=== PATIENT | male | born 1945 | race Caucasian/White ===

== ENCOUNTER 2023-12-01 14:40 | Outpatient (CLI) | payer MEDICARE | END 2023-12-01 14:41 | disposition home or self-care (01) | LOC: CSHWCC 14:40 | PROVIDERS: ATTEND Preventive Medicine Undersea and Hyperbaric Medicine | DX: N30.41 Irradiation cystitis with hematuria (principal) | CPT/HCPCS: 82962; G0277; 36416 ==

== ENCOUNTER 2023-12-02 07:57 | Outpatient (CLI) | payer MEDICARE | END 2023-12-02 07:58 | disposition home or self-care (01) | LOC: CSHWCC 07:57 | PROVIDERS: ATTEND Preventive Medicine Undersea and Hyperbaric Medicine | DX: N30.41 Irradiation cystitis with hematuria (principal) | CPT/HCPCS: 82962; G0277; 36416 ==

== ENCOUNTER 2023-12-05 12:07 | Outpatient (CLI) | payer MEDICARE | END 2023-12-05 12:08 | disposition home or self-care (01) | LOC: CSHWCC 12:07 | PROVIDERS: ATTEND Preventive Medicine Undersea and Hyperbaric Medicine | DX: N30.41 Irradiation cystitis with hematuria (principal) | CPT/HCPCS: 82962; G0277; 36416 ==

== ENCOUNTER 2023-12-06 08:19 | Outpatient (CLI) | payer MEDICARE | END 2023-12-06 08:20 | disposition home or self-care (01) | LOC: CSHWCC 08:19 | PROVIDERS: ATTEND Preventive Medicine Undersea and Hyperbaric Medicine | DX: N30.41 Irradiation cystitis with hematuria (principal) | CPT/HCPCS: 82962; G0277; 36416 ==

== ENCOUNTER 2023-12-07 08:59 | Outpatient (CLI) | payer MEDICARE | END 2023-12-07 09:00 | disposition home or self-care (01) | LOC: CSHWCC 08:59 | PROVIDERS: ATTEND Nurse Practitioner Family | DX: N30.41 Irradiation cystitis with hematuria (principal) | CPT/HCPCS: 82962; G0277; 36416 ==

== ENCOUNTER 2023-12-08 08:26 | Outpatient (CLI) | payer MEDICARE | END 2023-12-08 08:27 | disposition home or self-care (01) | LOC: CSHWCC 08:26 | PROVIDERS: ATTEND Nurse Practitioner Family | DX: N30.41 Irradiation cystitis with hematuria (principal) | CPT/HCPCS: 82962; G0277; 36416 ==

== ENCOUNTER 2023-12-09 14:25 | Outpatient (CLI) | payer MEDICARE | END 2023-12-09 14:26 | disposition home or self-care (01) | LOC: CSHWCC 14:25 | PROVIDERS: ATTEND Nurse Practitioner Family | DX: N30.41 Irradiation cystitis with hematuria (principal) | CPT/HCPCS: 36416 ==

== ENCOUNTER 2023-12-12 10:09 | Outpatient (CLI) | payer MEDICARE | END 2023-12-12 10:10 | disposition home or self-care (01) | LOC: CSHWCC 10:09 | PROVIDERS: ATTEND Nurse Practitioner Family | DX: N30.41 Irradiation cystitis with hematuria (principal) | CPT/HCPCS: 36416; G0277 ==

== ENCOUNTER 2023-12-13 08:20 | Outpatient (CLI) | payer MEDICARE | END 2023-12-13 08:21 | disposition home or self-care (01) | LOC: CSHWCC 08:20 | PROVIDERS: ATTEND Nurse Practitioner Family | DX: N30.41 Irradiation cystitis with hematuria (principal) | CPT/HCPCS: 36416 ==

== ENCOUNTER 2023-12-14 08:10 | Outpatient (CLI) | payer MEDICARE | END 2023-12-14 08:11 | disposition home or self-care (01) | LOC: CSHWCC 08:10 | PROVIDERS: ATTEND Nurse Practitioner Family | DX: N30.41 Irradiation cystitis with hematuria (principal) | CPT/HCPCS: 36416; G0277 ==

== ENCOUNTER 2023-12-15 08:55 | Outpatient (CLI) | payer MEDICARE | END 2023-12-15 08:56 | disposition home or self-care (01) | LOC: CSHWCC 08:55 | PROVIDERS: ATTEND Nurse Practitioner Family | DX: N30.41 Irradiation cystitis with hematuria (principal) | CPT/HCPCS: 82962; G0277; 36416 ==

== ENCOUNTER 2023-12-16 08:24 | Outpatient (CLI) | payer MEDICARE | END 2023-12-16 08:25 | disposition home or self-care (01) | LOC: CSHWCC 08:24 | PROVIDERS: ATTEND Nurse Practitioner Family | DX: N30.41 Irradiation cystitis with hematuria (principal) | CPT/HCPCS: 82962; G0277; 36416 ==

== ENCOUNTER 2023-12-19 09:49 | Outpatient (CLI) | payer MEDICARE | END 2023-12-19 09:50 | disposition home or self-care (01) | LOC: CSHWCC 09:49 | PROVIDERS: ATTEND Nurse Practitioner Family | DX: N30.41 Irradiation cystitis with hematuria (principal) | CPT/HCPCS: 82962; G0277; 36416 ==

== ENCOUNTER 2023-12-20 08:43 | Outpatient (CLI) | payer MEDICARE | END 2023-12-20 08:44 | disposition home or self-care (01) | LOC: CSHWCC 08:43 | PROVIDERS: ATTEND Nurse Practitioner Family | DX: N30.41 Irradiation cystitis with hematuria (principal) | CPT/HCPCS: 36416; G0277 ==

== ENCOUNTER 2023-12-21 08:23 | Outpatient (CLI) | payer MEDICARE | END 2023-12-21 08:24 | disposition home or self-care (01) | LOC: CSHWCC 08:23 | PROVIDERS: ATTEND Nurse Practitioner Family | DX: N30.41 Irradiation cystitis with hematuria (principal) | CPT/HCPCS: 36416; G0277 ==

== ENCOUNTER 2023-12-22 08:55 | Outpatient (CLI) | payer MEDICARE | END 2023-12-22 08:56 | disposition home or self-care (01) | LOC: CSHWCC 08:55 | PROVIDERS: ATTEND Preventive Medicine Undersea and Hyperbaric Medicine | DX: N30.41 Irradiation cystitis with hematuria (principal) | CPT/HCPCS: 36416; G0277 ==

== ENCOUNTER 2023-12-23 08:49 | Outpatient (CLI) | payer MEDICARE | END 2023-12-23 08:50 | disposition home or self-care (01) | LOC: CSHWCC 08:49 | PROVIDERS: ATTEND Preventive Medicine Undersea and Hyperbaric Medicine | DX: N30.41 Irradiation cystitis with hematuria (principal) | CPT/HCPCS: 36416 ==

== ENCOUNTER 2023-12-26 12:15 | Outpatient (CLI) | payer MEDICARE | END 2023-12-26 12:16 | disposition home or self-care (01) | LOC: CSHWCC 12:15 | PROVIDERS: ATTEND Preventive Medicine Undersea and Hyperbaric Medicine | DX: N30.41 Irradiation cystitis with hematuria (principal) | CPT/HCPCS: 82962; G0277; 36416 ==

== ENCOUNTER 2023-12-27 09:21 | Outpatient (CLI) | payer MEDICARE | END 2023-12-27 09:22 | disposition home or self-care (01) | LOC: CSHWCC 09:21 | PROVIDERS: ATTEND Preventive Medicine Undersea and Hyperbaric Medicine | DX: N30.41 Irradiation cystitis with hematuria (principal) | CPT/HCPCS: 36416 ==

== ENCOUNTER 2024-01-02 10:30 | Outpatient (CLI) | payer MEDICARE | END 2024-01-02 10:31 | disposition home or self-care (01) | LOC: CSHWCC 10:30 | PROVIDERS: ATTEND Nurse Practitioner Family | DX: N30.41 Irradiation cystitis with hematuria (principal) | CPT/HCPCS: 82962; G0277; 36416 ==

== ENCOUNTER 2024-01-03 12:01 | Outpatient (CLI) | payer MEDICARE | END 2024-01-03 12:02 | disposition home or self-care (01) | LOC: CSHWCC 12:01 | PROVIDERS: ATTEND Nurse Practitioner Family | DX: N30.41 Irradiation cystitis with hematuria (principal) | CPT/HCPCS: 82962; G0277; 36416 ==

== ENCOUNTER 2024-01-09 09:36 | Outpatient (CLI) | payer MEDICARE | END 2024-01-09 09:37 | disposition home or self-care (01) | LOC: CSHWCC 09:36 | PROVIDERS: ATTEND Nurse Practitioner Family | DX: N30.41 Irradiation cystitis with hematuria (principal) | CPT/HCPCS: 36416 ==

== ENCOUNTER 2024-01-11 12:54 | Outpatient (CLI) | payer MEDICARE | END 2024-01-11 12:55 | disposition home or self-care (01) | LOC: CSHWCC 12:54 | PROVIDERS: ATTEND Nurse Practitioner Family | DX: N30.41 Irradiation cystitis with hematuria (principal) | CPT/HCPCS: 82962; G0277; 36416 ==

== ENCOUNTER 2024-01-12 08:16 | Outpatient (CLI) | payer MEDICARE | END 2024-01-12 08:17 | disposition home or self-care (01) | LOC: CSHWCC 08:16 | PROVIDERS: ATTEND Nurse Practitioner Family | DX: N30.41 Irradiation cystitis with hematuria (principal) | CPT/HCPCS: 82962; G0277; 36416 ==

== ENCOUNTER 2024-01-13 09:03 | Outpatient (CLI) | payer MEDICARE | END 2024-01-13 09:04 | disposition home or self-care (01) | LOC: CSHWCC 09:03 | PROVIDERS: ATTEND Nurse Practitioner Family | DX: N30.41 Irradiation cystitis with hematuria (principal) | CPT/HCPCS: 82962; G0277; 36416 ==

== ENCOUNTER 2024-01-17 13:00 | Outpatient (CLI) | payer MEDICARE | END 2024-01-17 13:01 | disposition home or self-care (01) | LOC: CSHWCC 13:00 | PROVIDERS: ATTEND Nurse Practitioner Family | DX: N30.41 Irradiation cystitis with hematuria (principal) | CPT/HCPCS: 82962; G0277; 36416 ==

== ENCOUNTER 2024-01-18 13:10 | Outpatient (CLI) | payer MEDICARE | END 2024-01-18 13:11 | disposition home or self-care (01) | LOC: CSHWCC 13:10 | PROVIDERS: ATTEND Nurse Practitioner Family | DX: N30.41 Irradiation cystitis with hematuria (principal) | CPT/HCPCS: 82962; G0277; 36416 ==